=== PATIENT | male | born 1965 | race Caucasian/White ===

== ENCOUNTER 2020-09-07 13:03 | Emergency (ER) | payer MEDICAID, OTHER ==
[~2020-09-07] VITALS: Ht 177.8 cm; Wt 70.3 kg
[2020-09-07 13:03] VITALS: BP 176/86
[2020-09-07] MEDS ORDERED: cefTRIAXone SOD 1,000 MG VL IM ONE (15:45)
[2020-09-07] MEDS ORDERED: methylPREDNISolone SOD SUCC 125 MG/2 ML VL IM ONE (15:45)
[2020-09-07] MEDS ORDERED: KETOROLAC TROMETH 60MG/2ML VIAL IM ONE (15:45)
== END 2020-09-07 17:05 | disposition home or self-care (01) ==
LOC: ER 13:03
DX: K12.2 Cellulitis and abscess of mouth (principal); J02.9 Acute pharyngitis, unspecified
CPT/HCPCS: 96372; 99284; J0696; J1885; J2930